=== PATIENT | male | born 1950 | race Caucasian/White ===

== ENCOUNTER 2017-04-23 17:41 | Inpatient (IN) | payer OTHER, MEDICARE ==
[~2017-04-23] VITALS: Ht 170.2 cm; Wt 72.7 kg
[~2017-04-23 17:41] MED LIST: AMLO2.5T2 PO; ASCO500C15 PO; ATEN25TA PO; KEN0.1O TP; PNV1TABL66 PO; QUET50TA22 PO; SIMV20TA5 PO
[2017-04-23] MEDS ORDERED: normal saline 1000ML IV soln IVB ONE ×2 (18:00)
[2017-04-23 18:23] LABS: BASOPHILS # (AUTO) 0.2 X10'3 (0-0.2); BASOPHILS % (AUTO) 2.2 % (0-1); EOSINOPHILS # (AUTO) 0.1 X10'3 (0-0.9); EOSINOPHILS % (AUTO) 1.2 % (0-6); HEMOGLOBIN 14.5 g/dl (14.0-17.9); LYMPHOCYTES # (AUTO) 2.7 X10'3 (1.1-4.8); LYMPHOCYTES % (AUTO) 31.7 % (21-51); MEAN CORPUSCULAR HEMOGLOBIN 36.8 PG (27.0-31.0); MEAN CORPUSCULAR HGB CONC 34.6 % (33.0-36.5); MEAN CORPUSCULAR VOLUME 106.2 FL (78-98); MEAN PLATELET VOLUME 6.3 FL (7.4-10.4); MONOCYTES # (AUTO) 0.6 X10'3 (0-0.9); MONOCYTES % (AUTO) 6.8 % (2-12); NEUTROPHILS # (AUTO) 4.9 X10'3 (1.8-7.7); NEUTROPHILS % (AUTO) 58.1 % (42-75); PLATELET COUNT 270 X10'3 (140-440); RED BLOOD COUNT 3.95 X10'6 (4.70-6.10); RED CELL DISTRIBUTION WIDTH 13.3 % (11.5-14.5); WHITE BLOOD COUNT 8.4 X10'3 (4.5-11.0)
[2017-04-23 18:40] LABS: URINE AMPHETAMINE SCREEN NEGATIVE (Neg); URINE BARBITUATE SCREEN NEGATIVE (Neg); URINE BENZODIAZEPINES SCREEN NEGATIVE (Neg); URINE CANNABINOID SCREEN NEGATIVE (Neg); URINE COCAINE SCREEN NEGATIVE (Neg); URINE METHADONE SCREEN NEGATIVE (Neg); URINE OPIATE SCREEN NEGATIVE (Neg); URINE PHENCYCLIDINE SCREEN NEGATIVE (Neg)
[2017-04-23 18:44] LABS: ALBUMIN 3.9 G/DL (3.4-5.0); ANION GAP 11 (8-16); BILIRUBIN,TOTAL 0.5 MG/DL (0.1-1.0); BLOOD UREA NITROGEN 10 MG/DL (7-18); BUN/CREATININE RATIO 20.4 (5.4-32.0); CALCIUM 8.6 MG/DL (8.5-10.1); CHLORIDE 91 MMOL/L (99-107); CREATININE 0.49 MG/DL (0.60-1.10); GLUCOSE 86 MG/DL (70-104); SODIUM 128 MMOL/L (135-145); TOTAL CARBON DIOXIDE 26.2 MMOL/L (24-32); TOTAL PROTEIN 7.1 G/DL (6.4-8.2); eGFR > 90 ML/MIN
[2017-04-23 18:45] LABS: ALANINE AMINOTRANSFERASE 51 U/L (12-78); ALBUMIN/GLOBULIN RATIO 1.2 (1.1-1.5); ALKALINE PHOSPHATASE 77 IU/L (46-116); ASPARTATE AMINO TRANSFERASE 31 U/L (10-37); ETHANOL 0.077 GM/DL (0.0-0.010)
[2017-04-23 18:49] LABS: POTASSIUM 2.6 MMOL/L (3.5-5.1)
[2017-04-23] MEDS ORDERED: potassium Cl 40 mEq/NS 500ml IV ONE (18:55)
[2017-04-23] MEDS ORDERED: Potassium Cl 40 MEQ in NS 500 ML IV ONE (19:05)
[2017-04-23] MEDS ORDERED: ATEN-169 PO (20:49)
[2017-04-23] MEDS ORDERED: SIMV20TA5 PO (20:49)
[2017-04-23] MEDS ORDERED: magnesium hydroxide 30ml (MOM) UD suspension PO PRN (22:50)
[2017-04-23] MEDS ORDERED: potassium Cl 40MEQ/NS 500ml 500 ML IV PRN ×2 (22:50)
[2017-04-23] MEDS ORDERED: mag hydrox/Alum hydrox/simeth 30ml oral suspension PO PRN (22:50)
[2017-04-23] MEDS ORDERED: ondansetron/PF 4mg/2ml inj IV PRN (22:50)
[2017-04-23] MEDS ORDERED: acetaminophen 325mg tablet PO PRN (22:50)
[2017-04-23] MEDS ORDERED: potassium Cl 20 mEq SR tablet PO PRN ×2 (22:50)
[2017-04-23] MEDS ORDERED: thiamine 100mg/ml 2ml inj. IV ONE (22:55)
[2017-04-24] VITALS: BP 109/62
[2017-04-24] MEDS ORDERED: potassium Cl 40MEQ/NS 500ml 500 ML IV ONE (00:46)
[2017-04-24] MEDS ORDERED: FLU VACC QS2017-18 36MOS UP/PF 60 MCG/0.5 ML SYRINGE IMVAC ONE (06:15)
[2017-04-24] MEDS: potassium cl 20mEq in 1/2 NS 1,000 ML IV SCH ×2 (06:32→07:49)
[2017-04-24 08:00] VITALS: BP 150/82
[2017-04-24] MEDS ORDERED: K and/or MAG REPLACEMENT MC SCH (08:00)
[2017-04-24] MEDS ORDERED: atenolol 50mg tablet PO SCH (08:00)
[2017-04-24 08:21] LABS: BASOPHILS % (AUTO) 0.5 % (0-1); EOSINOPHILS # (AUTO) 0.1 X10'3 (0-0.9); EOSINOPHILS % (AUTO) 1.1 % (0-6); HEMATOCRIT 42.5 % (42.0-52.0); HEMOGLOBIN 15.1 g/dl (14.0-17.9); LYMPHOCYTES # (AUTO) 2.4 X10'3 (1.1-4.8); LYMPHOCYTES % (AUTO) 34.1 % (21-51); MEAN CORPUSCULAR HEMOGLOBIN 36.5 PG (27.0-31.0); MEAN CORPUSCULAR HGB CONC 35.6 % (33.0-36.5); MEAN CORPUSCULAR VOLUME 102.5 FL (78-98); MEAN PLATELET VOLUME 7.2 FL (7.4-10.4); MONOCYTES # (AUTO) 0.8 X10'3 (0-0.9); NEUTROPHILS # (AUTO) 3.7 X10'3 (1.8-7.7); NEUTROPHILS % (AUTO) 53.3 % (42-75); PLATELET COUNT 237 X10'3 (140-440); RED BLOOD COUNT 4.15 X10'6 (4.70-6.10); RED CELL DISTRIBUTION WIDTH 12.8 % (11.5-14.5)
[2017-04-24 08:28] LABS: ALANINE AMINOTRANSFERASE 42 U/L (12-78); ALBUMIN 3.7 G/DL (3.4-5.0); ALBUMIN/GLOBULIN RATIO 1.2 (1.1-1.5); ALKALINE PHOSPHATASE 71 IU/L (46-116); ANION GAP 9 (8-16); ASPARTATE AMINO TRANSFERASE 30 U/L (10-37); BILIRUBIN,TOTAL 0.6 MG/DL (0.1-1.0); BLOOD UREA NITROGEN 10 MG/DL (7-18); BUN/CREATININE RATIO 18.9 (5.4-32.0); CALCIUM 8.7 MG/DL (8.5-10.1); CHLORIDE 97 MMOL/L (99-107); CREATININE 0.53 MG/DL (0.60-1.10); GLUCOSE 100 MG/DL (70-104); SODIUM 131 MMOL/L (135-145); TOTAL CARBON DIOXIDE 24.9 MMOL/L (24-32); TOTAL PROTEIN 6.9 G/DL (6.4-8.2); eGFR > 90 ML/MIN
[2017-04-24 08:32] LABS: POTASSIUM 3.4 MMOL/L (3.5-5.1)
[2017-04-24 11:00] VITALS: BP 162/82
[2017-04-24] MEDS ORDERED: POTA20TA10 PO (12:24)
[2017-04-24] MEDS ORDERED: THI100T PO (12:24)
[2017-04-24] MEDS ORDERED: non-formulary drug (Simvastatin* (Zocor*) 2 TAB) PO SCH (21:00)
[2017-04-24] MEDS ORDERED: atorvastatin 20mg tablet PO SCH (21:00)
== END 2017-04-24 14:00 | disposition home or self-care (01) | DRG 897 ==
LOC: ER 17:43 → ED HOLD 22:49 → MED 3N 23:00
PROVIDERS: ADMIT Internal Medicine; ATTEND Internal Medicine
DX: F10.239 Alcohol dependence with withdrawal, unspecified (principal); I50.9 Heart failure, unspecified; E87.6 Hypokalemia; E86.0 Dehydration; Y90.3 Blood alcohol level of 60-79 mg/100 ml; E78.00 Pure hypercholesterolemia, unspecified; F43.20 Adjustment disorder, unspecified; F32.9 Major depressive disorder, single episode, unspecified; F41.9 Anxiety disorder, unspecified; F17.210 Nicotine dependence, cigarettes, uncomplicated; Z79.899 Other long term (current) drug therapy; Z23 Encounter for immunization; Z91.048 Other nonmedicinal substance allergy status
CPT/HCPCS: 36415; 71045; 80053; 80305; 80320; 84443; 84484; 85025; 85610; 87070; 93005; 96361; 96365; 96366; 97116; 97161; 99285; J3411; J3480; J7030; Q2037

== ENCOUNTER 2017-06-24 11:23 | Emergency (ER) | payer MEDICARE, OTHER ==
[~2017-06-24] VITALS: Ht 170.2 cm; Wt 165.0 kg
[~2017-06-24 11:23] MED LIST changes: -AMLO2.5T2 PO; -ASCO500C15 PO; +ATEN-169 PO; -ATEN25TA PO; -KEN0.1O TP; +POTA20TA10 PO; -QUET50TA22 PO
[2017-06-24 12:09] LABS: BASOPHILS % (AUTO) 0.6 % (0-1); EOSINOPHILS # (AUTO) 0.1 X10'3 (0-0.9); EOSINOPHILS % (AUTO) 0.8 % (0-6); HEMATOCRIT 44.9 % (42.0-52.0); HEMOGLOBIN 15.8 g/dl (14.0-17.9); LYMPHOCYTES # (AUTO) 1.7 X10'3 (1.1-4.8); LYMPHOCYTES % (AUTO) 20.7 % (21-51); MEAN CORPUSCULAR HEMOGLOBIN 36.9 PG (27.0-31.0); MEAN CORPUSCULAR HGB CONC 35.3 % (33.0-36.5); MEAN CORPUSCULAR VOLUME 104.4 FL (78-98); MEAN PLATELET VOLUME 6.9 FL (7.4-10.4); MONOCYTES # (AUTO) 0.7 X10'3 (0-0.9); MONOCYTES % (AUTO) 8.5 % (2-12); NEUTROPHILS # (AUTO) 5.6 X10'3 (1.8-7.7); NEUTROPHILS % (AUTO) 69.4 % (42-75); PLATELET COUNT 221 X10'3 (140-440); RED CELL DISTRIBUTION WIDTH 12.6 % (11.5-14.5); WHITE BLOOD COUNT 8.1 X10'3 (4.5-11.0)
[2017-06-24 12:13] LABS: CLARITY,URINE CLEAR (Clear); COLOR,URINE STRAW (Yellow); GLUCOSE, URINE NEGATIVE (Neg); KETONES,URINE NEGATIVE (Neg); LEUKOCYTE ESTERASE ,URINE NEGATIVE (Neg); NITRITES, URINE NEGATIVE (Neg); OCCULT BLOOD,URINE TRACE-INTACT (Neg); PH,URINE 6.5 (4.8-8.0); PROTEIN,URINE NEGATIVE (Neg); UA COLLECTION TYPE CLN CATCH MIDSTREAM; UROBILINOGEN,URINE 0.2 E.U/dL (0.2-1.0)
[2017-06-24] MEDS ORDERED: normal saline 1000ML IV soln IVB ONE (12:15)
[2017-06-24 12:21] LABS: BACTERIA,URINE NONE SEEN /HPF (Neg); MUCUS STRANDS NONE SEEN /LPF (Neg); RBC,URINE 0-2 /HPF (0-2); SQUAMOUS EPITHELIAL CELL,UR NONE SEEN /LPF (FEW); WBC,URINE NONE SEEN /HPF (0-4)
[2017-06-24 12:24] LABS: ALANINE AMINOTRANSFERASE 39 U/L (12-78); ALBUMIN/GLOBULIN RATIO 1.1 (1.1-1.5); ALKALINE PHOSPHATASE 98 IU/L (46-116); ANION GAP 11 (8-16); ASPARTATE AMINO TRANSFERASE 30 U/L (10-37); BLOOD UREA NITROGEN 7 MG/DL (7-18); BUN/CREATININE RATIO 11.3 (5.4-32.0); CHLORIDE 93 MMOL/L (99-107); CREATININE 0.62 MG/DL (0.60-1.10); GLUCOSE 104 MG/DL (70-104); LIPASE 154 U/L (73-393); MAGNESIUM 1.7 MG/DL (1.5-2.4); SODIUM 131 MMOL/L (135-145); TOTAL PROTEIN 7.8 G/DL (6.4-8.2); eGFR > 90 ML/MIN
[2017-06-24 12:28] LABS: POTASSIUM 2.9 MMOL/L (3.5-5.1)
[2017-06-24 12:35] LABS: ETHANOL < 0.010 GM/DL (0.0-0.010)
[2017-06-24] MEDS ORDERED: potassium Cl 20 mEq SR tablet PO STA ×2 (12:35→13:42)
[2017-06-24] MEDS ORDERED: magnesium oxide 400mg tablet PO ONE (12:35)
[2017-06-24] MEDS ORDERED: thiamine 100mg tablet PO ONE (12:35)
[2017-06-24 14:38] VITALS: BP 138/70
== END 2017-06-24 14:38 | disposition home or self-care (01) ==
LOC: ER 11:25
DX: R53.1 Weakness (principal); F10.10 Alcohol abuse, uncomplicated; E87.6 Hypokalemia; E78.00 Pure hypercholesterolemia, unspecified; Z98.890 Other specified postprocedural states; Z88.8 Allergy status to other drugs, medicaments and biological substances; Z91.013 Allergy to seafood; Z79.899 Other long term (current) drug therapy
CPT/HCPCS: 36415; 80053; 80320; 81001; 82140; 83690; 83735; 84439; 84443; 84484; 85025; 93005; 96360; 99285; J7030

== ENCOUNTER 2017-12-23 14:19 | Inpatient (IN) | payer MEDICARE, OTHER ==
[~2017-12-23] VITALS: Ht 170.2 cm; Wt 70.5 kg
[~2017-12-23 14:19] MED LIST changes: +PNV1TABL55 PO; -PNV1TABL66 PO
[2017-12-23] MEDS ORDERED: normal saline 1000ML IV soln IVB ONE (16:00)
[2017-12-23 17:03] LABS: CLARITY,URINE CLEAR (Clear); COLOR,URINE YELLOW (Yellow); GLUCOSE, URINE 100 mg/dl (Neg); KETONES,URINE NEGATIVE (Neg); LEUKOCYTE ESTERASE ,URINE NEGATIVE (Neg); NITRITES, URINE NEGATIVE (Neg); OCCULT BLOOD,URINE LARGE (Neg); PROTEIN,URINE 30 mg/dl (Neg); UROBILINOGEN,URINE 0.2 E.U/dL (0.2-1.0)
[2017-12-23 17:16] LABS: UA COLLECTION TYPE URINAL
[2017-12-23 17:17] LABS: ALANINE AMINOTRANSFERASE 214 U/L (12-78); ALBUMIN 3.7 G/DL (3.4-5.0); ALKALINE PHOSPHATASE 94 IU/L (46-116); ANION GAP 14 (8-16); ASPARTATE AMINO TRANSFERASE 386 U/L (10-37); BLOOD UREA NITROGEN 62 MG/DL (7-18); CALCIUM 8.5 MG/DL (8.5-10.1); CHLORIDE 78 MMOL/L (99-107); CREATININE 1.63 MG/DL (0.60-1.10); GLUCOSE 109 MG/DL (70-104); LIPASE 363 U/L (73-393); TOTAL CARBON DIOXIDE 25.7 MMOL/L (24-32); TOTAL PROTEIN 7.5 G/DL (6.4-8.2); eGFR 42 ML/MIN
[2017-12-23 17:31] LABS: POTASSIUM 2.5 MMOL/L (3.5-5.1); SODIUM 118 MMOL/L (135-145)
[2017-12-23 17:32] LABS: BASOPHILS % (AUTO) 0.3 % (0-1); EOSINOPHILS % (AUTO) 0.2 % (0-6); HEMATOCRIT 25.7 % (42.0-52.0); LYMPHOCYTES # (AUTO) 0.7 X10'3 (1.1-4.8); LYMPHOCYTES % (AUTO) 10.5 % (21-51); MEAN CORPUSCULAR HEMOGLOBIN 37.4 PG (27.0-31.0); MEAN CORPUSCULAR HGB CONC 34.9 % (33.0-36.5); MEAN PLATELET VOLUME 7.1 FL (7.4-10.4); MONOCYTES # (AUTO) 0.7 X10'3 (0-0.9); MONOCYTES % (AUTO) 10.5 % (2-12); NEUTROPHILS # (AUTO) 5.1 X10'3 (1.8-7.7); NEUTROPHILS % (AUTO) 78.5 % (42-75); PLATELET COUNT 122 X10'3 (140-440); RED CELL DISTRIBUTION WIDTH 12.2 % (11.5-14.5); WHITE BLOOD COUNT 6.4 X10'3 (4.5-11.0)
[2017-12-23 17:33] LABS: WBC,URINE 0-4 /HPF (0-4)
[2017-12-23 17:34] LABS: AMORPHOUS URATES 1+; BACTERIA,URINE NONE SEEN /HPF (Neg); HYALINE CASTS 0-3 /LPF (NEGATIVE); RBC,URINE 0-2 /HPF (0-2); SQUAMOUS EPITHELIAL CELL,UR FEW /LPF (FEW); TRANSITIONAL EPI CELLS,URINE FEW /HPF
[2017-12-23 17:35] LABS: FINE GRANULAR CAST 0-3 /LPF (NEGATIVE)
[2017-12-23] MEDS ORDERED: potassium Cl 20 mEq SR tablet PO ONE (17:35)
[2017-12-23] MEDS: potassium 10mEq/100ml NS w/LIDOcaine (10mg/bag) IV SCH ×2 (17:48→19:08)
[2017-12-23] MEDS: magnesium 1gm/100ml D5W IVPB 100 ML IV SCH ×2 (17:59→19:08)
[2017-12-23 18:28] LABS: MAGNESIUM 2.4 MG/DL (1.5-2.4)
[2017-12-23 18:30] LABS: CREATINE KINASE 5242 U/L (39-308)
[2017-12-23] MEDS ORDERED: LORazepam 2 mg/ml vial IV PRN (19:30)
[2017-12-23] MEDS ORDERED: mag hydrox/Alum hydrox/simeth 30ml oral suspension PO PRN (19:30)
[2017-12-23] MEDS ORDERED: acetaminophen 325mg tablet PO PRN (19:30)
[2017-12-23] MEDS ORDERED: magnesium hydroxide 30ml (MOM) UD suspension PO PRN (19:30)
[2017-12-23] MEDS ORDERED: magnesium 1gm/100ml D5W IVPB 100 ML IV PRN (19:30)
[2017-12-23] MEDS ORDERED: morphine 2 MG/ML inj. syringe IV PRN ×2 (19:30)
[2017-12-23] MEDS ORDERED: magnesium Cl slow-release 64mg tablet PO PRN (19:30)
[2017-12-23] MEDS ORDERED: ondansetron/PF 4mg/2ml inj IV PRN (19:30)
[2017-12-23] MEDS ORDERED: dextrose 50%-water 50ml dispensing syringe IV PRN (19:30)
[2017-12-23] MEDS ORDERED: magnesium 4gm in 100ml NS 100 ML IV PRN (19:30)
[2017-12-23] MEDS ORDERED: potassium Cl 40MEQ/NS 500ml 500 ML IV PRN ×2 (19:30)
[2017-12-23] MEDS ORDERED: thiamine 100mg/ml 2ml inj. IV ONE (19:30)
[2017-12-23] MEDS ORDERED: IBUP-1986 PO (19:49)
[2017-12-23] MEDS ORDERED: ATEN-169 PO (19:49)
[2017-12-23] MEDS ORDERED: KEN0.1O TP (19:49)
[2017-12-23] MEDS ORDERED: AMLO10TA13 PO (19:49)
[2017-12-23] MEDS ORDERED: VITA1TAB20 PO (19:49)
[2017-12-23] MEDS ORDERED: [UNRECOGNIZED DRUG - CODE] TP (19:52)
[2017-12-23] MEDS ORDERED: PNV1TABL7 PO (19:52)
[2017-12-23] MEDS: potassium Cl 20mEq in NS 1,000 ML IV SCH (20:30)
[2017-12-24 00:18] LABS: MAGNESIUM 2.7 MG/DL (1.5-2.4)
[2017-12-24 00:19] LABS: POTASSIUM 2.8 MMOL/L (3.5-5.1)
[2017-12-24] MEDS: potassium Cl 20 mEq SR tablet PO PRN ×3 (00:53→09:56)
[2017-12-24 02:00] VITALS: BP 122/70
[2017-12-24] MEDS: potassium Cl 20mEq in NS 1,000 ML IV SCH ×2 (05:55→15:43)
[2017-12-24 06:43] LABS: BASOPHILS % (AUTO) 0.6 % (0-1); EOSINOPHILS % (AUTO) 0.2 % (0-6); HEMATOCRIT 36.9 % (42.0-52.0); HEMOGLOBIN 12.9 g/dl (14.0-17.9); LYMPHOCYTES # (AUTO) 1.2 X10'3 (1.1-4.8); LYMPHOCYTES % (AUTO) 16.1 % (21-51); MEAN CORPUSCULAR HEMOGLOBIN 37.6 PG (27.0-31.0); MEAN CORPUSCULAR VOLUME 107.3 FL (78-98); MEAN PLATELET VOLUME 7.7 FL (7.4-10.4); MONOCYTES % (AUTO) 13.5 % (2-12); NEUTROPHILS # (AUTO) 5.2 X10'3 (1.8-7.7); NEUTROPHILS % (AUTO) 69.6 % (42-75); PLATELET COUNT 200 X10'3 (140-440); RED BLOOD COUNT 3.44 X10'6 (4.70-6.10); RED CELL DISTRIBUTION WIDTH 12.4 % (11.5-14.5); WHITE BLOOD COUNT 7.4 X10'3 (4.5-11.0)
[2017-12-24 07:06] LABS: ALANINE AMINOTRANSFERASE 165 U/L (12-78); ALBUMIN 3.1 G/DL (3.4-5.0); ALBUMIN/GLOBULIN RATIO 0.9 (1.1-1.5); ALKALINE PHOSPHATASE 83 IU/L (46-116); ANION GAP 11 (8-16); ASPARTATE AMINO TRANSFERASE 252 U/L (10-37); BILIRUBIN,TOTAL 1.2 MG/DL (0.1-1.0); BLOOD UREA NITROGEN 44 MG/DL (7-18); CALCIUM 8.3 MG/DL (8.5-10.1); CHLORIDE 91 MMOL/L (99-107); GLUCOSE 113 MG/DL (70-104); MAGNESIUM 2.6 MG/DL (1.5-2.4); POTASSIUM 3.1 MMOL/L (3.5-5.1); SODIUM 127 MMOL/L (135-145); TOTAL PROTEIN 6.5 G/DL (6.4-8.2); eGFR 66 ML/MIN
[2017-12-24 07:12] VITALS: BP 126/77
[2017-12-24] MEDS: K and/or MAG REPLACEMENT MC SCH (08:00)
[2017-12-24] MEDS: pantoprazole 40 MG vial IV SCH (08:34)
[2017-12-24] MEDS: atenolol 50mg tablet PO SCH (08:35)
[2017-12-24 09:20] LABS: CREATINE KINASE 2555 U/L (39-308)
[2017-12-24 11:00] VITALS: BP 112/57
[2017-12-24 12:12] LABS: PHOSPHORUS 1.8 MG/DL (2.3-4.5)
[2017-12-24 12:13] LABS: POTASSIUM 4.1 MMOL/L (3.5-5.1)
[2017-12-24] MEDS ORDERED: sodium phosphate inj. 30 MMOL in dextrose 5%-water 250 ML IV ONE (13:30)
[2017-12-24 15:00] VITALS: BP 105/60
[2017-12-24] MEDS: Neutra Phos packet PO SCH ×2 (15:39→20:08)
[2017-12-24 19:00] VITALS: BP 99/60
[2017-12-24] MEDS: atorvastatin 10mg tablet PO SCH (20:08)
[2017-12-24] MEDS ORDERED: Neutra Phos packet PO SCH (21:00)
[2017-12-24 23:00] VITALS: BP 136/70
[2017-12-25] MEDS: potassium Cl 20mEq in NS 1,000 ML IV SCH ×3 (01:16→21:30)
[2017-12-25 03:00] VITALS: BP 109/79
[2017-12-25 06:00] VITALS: BP 145/73
[2017-12-25 06:01] LABS: BASOPHILS % (AUTO) 0.3 % (0-1); EOSINOPHILS # (AUTO) 0.2 X10'3 (0-0.9); EOSINOPHILS % (AUTO) 2.2 % (0-6); HEMATOCRIT 33.6 % (42.0-52.0); HEMOGLOBIN 11.7 g/dl (14.0-17.9); LYMPHOCYTES % (AUTO) 25.1 % (21-51); MEAN CORPUSCULAR HEMOGLOBIN 37.4 PG (27.0-31.0); MEAN CORPUSCULAR HGB CONC 34.9 % (33.0-36.5); MEAN CORPUSCULAR VOLUME 107.4 FL (78-98); MEAN PLATELET VOLUME 7.5 FL (7.4-10.4); MONOCYTES # (AUTO) 0.9 X10'3 (0-0.9); MONOCYTES % (AUTO) 11.1 % (2-12); NEUTROPHILS # (AUTO) 4.8 X10'3 (1.8-7.7); NEUTROPHILS % (AUTO) 61.3 % (42-75); PLATELET COUNT 196 X10'3 (140-440); RED BLOOD COUNT 3.13 X10'6 (4.70-6.10); WHITE BLOOD COUNT 7.8 X10'3 (4.5-11.0)
[2017-12-25 06:25] LABS: ALANINE AMINOTRANSFERASE 126 U/L (12-78); ALBUMIN 2.7 G/DL (3.4-5.0); ALBUMIN/GLOBULIN RATIO 0.9 (1.1-1.5); ALKALINE PHOSPHATASE 68 IU/L (46-116); ANION GAP 9 (8-16); ASPARTATE AMINO TRANSFERASE 160 U/L (10-37); BILIRUBIN,TOTAL 0.8 MG/DL (0.1-1.0); BLOOD UREA NITROGEN 25 MG/DL (7-18); BUN/CREATININE RATIO 35.7 (5.4-32.0); CHLORIDE 96 MMOL/L (99-107); GLUCOSE 109 MG/DL (70-104); MAGNESIUM 1.6 MG/DL (1.5-2.4); PHOSPHORUS 2.3 MG/DL (2.3-4.5); POTASSIUM 3.3 MMOL/L (3.5-5.1); SODIUM 129 MMOL/L (135-145); TOTAL CARBON DIOXIDE 24.1 MMOL/L (24-32); TOTAL PROTEIN 5.8 G/DL (6.4-8.2); eGFR > 90 ML/MIN
[2017-12-25 06:27] LABS: CREATINE KINASE 1184 U/L (39-308)
[2017-12-25] MEDS: atenolol 50mg tablet PO SCH (07:58)
[2017-12-25] MEDS: potassium Cl 20 mEq SR tablet PO PRN ×2 (07:58→12:09)
[2017-12-25] MEDS: Neutra Phos packet PO SCH ×3 (07:59→20:28)
[2017-12-25] MEDS: pantoprazole 40 MG vial IV SCH (07:59)
[2017-12-25] MEDS: enoxaparin 40mg/0.4ml syringe SUBCUT SCH (08:00)
[2017-12-25] MEDS: K and/or MAG REPLACEMENT MC SCH (08:00)
[2017-12-25 11:00] VITALS: BP 131/71
[2017-12-25 15:00] VITALS: BP 136/76
[2017-12-25 19:00] VITALS: BP 161/81
[2017-12-25] MEDS ORDERED: LORazepam 2 mg/ml vial IV PRN (19:30)
[2017-12-25] MEDS ORDERED: LORazepam 1 MG tablet PO PRN (19:30)
[2017-12-25] MEDS: atorvastatin 10mg tablet PO SCH (20:28)
[2017-12-25 23:00] VITALS: BP 125/70
[2017-12-26 03:00] VITALS: BP 132/66
[2017-12-26 06:00] VITALS: BP 153/78
[2017-12-26 06:42] LABS: BASOPHILS # (AUTO) 0.1 X10'3 (0-0.2); BASOPHILS % (AUTO) 0.7 % (0-1); EOSINOPHILS # (AUTO) 0.1 X10'3 (0-0.9); EOSINOPHILS % (AUTO) 1.7 % (0-6); HEMOGLOBIN 11.5 g/dl (14.0-17.9); LYMPHOCYTES # (AUTO) 2.2 X10'3 (1.1-4.8); LYMPHOCYTES % (AUTO) 26.9 % (21-51); MEAN CORPUSCULAR HGB CONC 34.9 % (33.0-36.5); MEAN CORPUSCULAR VOLUME 106.1 FL (78-98); MEAN PLATELET VOLUME 7.8 FL (7.4-10.4); MONOCYTES # (AUTO) 0.8 X10'3 (0-0.9); MONOCYTES % (AUTO) 9.6 % (2-12); NEUTROPHILS # (AUTO) 5.1 X10'3 (1.8-7.7); NEUTROPHILS % (AUTO) 61.1 % (42-75); PLATELET COUNT 214 X10'3 (140-440); RED BLOOD COUNT 3.11 X10'6 (4.70-6.10); RED CELL DISTRIBUTION WIDTH 12.2 % (11.5-14.5); WHITE BLOOD COUNT 8.3 X10'3 (4.5-11.0)
[2017-12-26 07:01] LABS: ALANINE AMINOTRANSFERASE 116 U/L (12-78); ALBUMIN 2.8 G/DL (3.4-5.0); ALBUMIN/GLOBULIN RATIO 0.9 (1.1-1.5); ALKALINE PHOSPHATASE 68 IU/L (46-116); ANION GAP 11 (8-16); ASPARTATE AMINO TRANSFERASE 121 U/L (10-37); BILIRUBIN,TOTAL 0.7 MG/DL (0.1-1.0); BLOOD UREA NITROGEN 15 MG/DL (7-18); BUN/CREATININE RATIO 21.4 (5.4-32.0); CALCIUM 7.9 MG/DL (8.5-10.1); CHLORIDE 93 MMOL/L (99-107); GLUCOSE 109 MG/DL (70-104); MAGNESIUM 1.1 MG/DL (1.5-2.4); POTASSIUM 3.2 MMOL/L (3.5-5.1); SODIUM 127 MMOL/L (135-145); TOTAL CARBON DIOXIDE 23.5 MMOL/L (24-32); eGFR > 90 ML/MIN
[2017-12-26] MEDS: K and/or MAG REPLACEMENT MC SCH (08:00)
[2017-12-26] MEDS: pantoprazole 40mg Tablet.DR PO SCH (08:08)
[2017-12-26] MEDS: atenolol 25mg tablet PO SCH (08:09)
[2017-12-26] MEDS: Neutra Phos packet PO SCH ×3 (08:09→22:46)
[2017-12-26] MEDS: potassium Cl 20 mEq SR tablet PO PRN ×3 (08:09→17:25)
[2017-12-26] MEDS: enoxaparin 40mg/0.4ml syringe SUBCUT SCH (08:11)
[2017-12-26 11:00] VITALS: BP 103/56
[2017-12-26] MEDS: potassium Cl 20mEq in NS 1,000 ML IV SCH ×3 (12:30→20:18)
[2017-12-26 12:47] LABS: CHLORIDE 92 MMOL/L (99-107); POTASSIUM 3.7 MMOL/L (3.5-5.1); TOTAL CARBON DIOXIDE 23.1 MMOL/L (24-32)
[2017-12-26 12:53] LABS: ANION GAP 12 (8-16); BLOOD UREA NITROGEN 14 MG/DL (7-18); BUN/CREATININE RATIO 16.9 (5.4-32.0); CALCIUM 7.8 MG/DL (8.5-10.1); CREATININE 0.83 MG/DL (0.60-1.10); GLUCOSE 138 MG/DL (70-104); SODIUM 127 MMOL/L (135-145); eGFR > 90 ML/MIN
[2017-12-26 15:00] VITALS: BP 122/94
[2017-12-26 18:00] VITALS: BP 135/75
[2017-12-26 22:00] VITALS: BP 140/67
[2017-12-27 02:00] VITALS: BP 150/77
[2017-12-27] MEDS: potassium Cl 20mEq in NS 1,000 ML IV SCH ×2 (02:57→10:26)
[2017-12-27 06:00] VITALS: BP 160/77
[2017-12-27 06:06] LABS: BASOPHILS # (AUTO) 0.1 X10'3 (0-0.2); BASOPHILS % (AUTO) 0.7 % (0-1); EOSINOPHILS # (AUTO) 0.2 X10'3 (0-0.9); EOSINOPHILS % (AUTO) 2.4 % (0-6); HEMATOCRIT 33.5 % (42.0-52.0); HEMOGLOBIN 11.7 g/dl (14.0-17.9); LYMPHOCYTES # (AUTO) 2.2 X10'3 (1.1-4.8); LYMPHOCYTES % (AUTO) 30.5 % (21-51); MEAN CORPUSCULAR HEMOGLOBIN 37.2 PG (27.0-31.0); MEAN CORPUSCULAR HGB CONC 34.8 % (33.0-36.5); MEAN CORPUSCULAR VOLUME 107.1 FL (78-98); MEAN PLATELET VOLUME 7.2 FL (7.4-10.4); MONOCYTES # (AUTO) 0.8 X10'3 (0-0.9); MONOCYTES % (AUTO) 11.4 % (2-12); NEUTROPHILS # (AUTO) 3.9 X10'3 (1.8-7.7); PLATELET COUNT 253 X10'3 (140-440); RED BLOOD COUNT 3.13 X10'6 (4.70-6.10); RED CELL DISTRIBUTION WIDTH 12.2 % (11.5-14.5); WHITE BLOOD COUNT 7.1 X10'3 (4.5-11.0)
[2017-12-27 06:39] LABS: ALANINE AMINOTRANSFERASE 103 U/L (12-78); ALBUMIN 2.8 G/DL (3.4-5.0); ALBUMIN/GLOBULIN RATIO 0.9 (1.1-1.5); ALKALINE PHOSPHATASE 73 IU/L (46-116); ANION GAP 10 (8-16); ASPARTATE AMINO TRANSFERASE 80 U/L (10-37); BILIRUBIN,TOTAL 0.6 MG/DL (0.1-1.0); BLOOD UREA NITROGEN 14 MG/DL (7-18); BUN/CREATININE RATIO 21.2 (5.4-32.0); CALCIUM 7.8 MG/DL (8.5-10.1); CHLORIDE 97 MMOL/L (99-107); CREATINE KINASE 781 U/L (39-308); CREATININE 0.66 MG/DL (0.60-1.10); GLUCOSE 101 MG/DL (70-104); MAGNESIUM 1.4 MG/DL (1.5-2.4); POTASSIUM 3.3 MMOL/L (3.5-5.1); SODIUM 130 MMOL/L (135-145); TOTAL CARBON DIOXIDE 22.8 MMOL/L (24-32); TOTAL PROTEIN 5.8 G/DL (6.4-8.2); eGFR > 90 ML/MIN
[2017-12-27] MEDS: K and/or MAG REPLACEMENT MC SCH (08:00)
[2017-12-27] MEDS: pantoprazole 40mg Tablet.DR PO SCH (08:09)
[2017-12-27] MEDS: atenolol 25mg tablet PO SCH (08:09)
[2017-12-27] MEDS: Neutra Phos packet PO SCH (08:10)
[2017-12-27] MEDS: enoxaparin 40mg/0.4ml syringe SUBCUT SCH (08:10)
[2017-12-27] MEDS ORDERED: POTA20TA19 PO (10:05)
[2017-12-27] MEDS ORDERED: FOLI1TAB16 PO (10:05)
[2017-12-27] MEDS ORDERED: THI100T PO (10:05)
[2017-12-27 12:46] VITALS: BP 140/75
[2017-12-27] MEDS ORDERED: LORazepam 1 MG tablet PO PRN (19:30)
[2017-12-27] MEDS ORDERED: LORazepam 2 mg/ml vial IV PRN (19:30)
== END 2017-12-27 14:00 | disposition home health service (06) | DRG 683 ==
LOC: ER 14:19 → ED HOLD 19:30 → EDBEDREQ 23:57 → ED HOLD 12-24 00:13 → PCU 3S 12-24 02:29
PROVIDERS: ADMIT Internal Medicine; ATTEND Internal Medicine
DX: N17.9 Acute kidney failure, unspecified (principal); E87.1 Hypo-osmolality and hyponatremia; M62.82 Rhabdomyolysis; E87.6 Hypokalemia; E86.0 Dehydration; D64.9 Anemia, unspecified; E78.00 Pure hypercholesterolemia, unspecified; W18.39XA Other fall on same level, initial encounter; F10.10 Alcohol abuse, uncomplicated; G62.9 Polyneuropathy, unspecified; I50.9 Heart failure, unspecified; Z96.649 Presence of unspecified artificial hip joint; F41.9 Anxiety disorder, unspecified; Z91.018 Allergy to other foods; Z91.048 Other nonmedicinal substance allergy status; Z79.899 Other long term (current) drug therapy; Z71.41 Alcohol abuse counseling and surveillance of alcoholic; Y93.89 Activity, other specified; Y92.89 Other specified places as the place of occurrence of the external cause; Y99.8 Other external cause status
CPT/HCPCS: 36415; 70450; 71045; 72100; 80048; 80053; 81001; 82550; 82607; 83605; 83690; 83735; 84100; 84132; 85025; 87070; 96361; 96365; 96366; 96368; 97110; 97116; 97162; 97530; 99285; C9113; G0378; J1650; J3411; J3475; J3480

== ENCOUNTER 2021-01-11 08:49 | Day surgery (SDC) | payer OTHER ==
[~2021-01-11] VITALS: Ht 170.2 cm; Wt 69.9 kg
[2021-01-11] VITALS (7 sets, daily range): BP systolic 110–148; BP diastolic 67–87
[~2021-01-11 08:49] MED LIST changes: +FOLI1TAB16 PO; +LIDOcaine 1% 30ml preserv. free vial IJ STA; -PNV1TABL55 PO; +PNV1TABL7 PO; -POTA20TA10 PO; -SIMV20TA5 PO; +VITA1TAB20 PO
[2021-01-11] MEDS ORDERED: albumin 25% 100mL bottle x 1 IV PRN (09:20)
[2021-01-11] MEDS ORDERED: ASPI-1265 PO (09:29)
[2021-01-11] MEDS ORDERED: LISI40TA13 PO (09:30)
[2021-01-11] MEDS ORDERED: AMLO5TAB PO (09:32)
[2021-01-11] MEDS ORDERED: AMLO10TA13 PO (09:33)
[2021-01-11] MEDS ORDERED: PANT-47 PO (09:48)
[2021-01-11] MEDS ORDERED: ROSU40TA PO (09:49)
[2021-01-11] MEDS ORDERED: ROSU20TA2 PO (09:50)
[2021-01-11] MEDS ORDERED: METO-411 PO (09:53)
[2021-01-11] MEDS ORDERED: AMLO-140 PO (09:55)
[2021-01-11 11:38] LABS: BFSOURCE RIGHT PLEURAL FLD; PLEURAL FLUID PH 6.925 (7.63-7.65)
[2021-01-11 11:52] LABS: TOTAL PROTEIN,BODY FLUID 3.8 G/DL
[2021-01-11 11:54] LABS: LDH,BODY FLUID 225 U/L
[2021-01-11 12:32] LABS: BFAPPEAR CLOUDY; BFCOLOR AMBER
[2021-01-11 12:33] LABS: BF RBC COUNT 33500 /CU MM; BF WBC COUNT 10 /CU MM (0-1000); BFVOLUME 45 ML
[2021-01-11 12:39] LABS: EOSINOPHILS,BODY FLUID 2 %; LYMPHOCYTES,BODY FLUID 43 %; MONOCYTES,BODY FLUID 5 %; NEUTROPHILS,BODY FLUID 50 %
== END 2021-01-11 09:55 | disposition home or self-care (01) ==
LOC: SSTAY O 08:49
PROVIDERS: ATTEND Radiology Vascular & Interventional Radiology
DX: J90 Pleural effusion, not elsewhere classified (principal); E87.6 Hypokalemia; K21.9 Gastro-esophageal reflux disease without esophagitis; I10 Essential (primary) hypertension; E78.5 Hyperlipidemia, unspecified; I25.2 Old myocardial infarction; E87.1 Hypo-osmolality and hyponatremia; F17.210 Nicotine dependence, cigarettes, uncomplicated; Z72.89 Other problems related to lifestyle; Z96.641 Presence of right artificial hip joint; Z95.1 Presence of aortocoronary bypass graft; Z91.09 Other allergy status, other than to drugs and biological substances; Z91.013 Allergy to seafood; Z79.82 Long term (current) use of aspirin; Z79.899 Other long term (current) drug therapy; Z20.822 Contact with and (suspected) exposure to COVID-19
CPT/HCPCS: 32555; 83615; 83986; 84157; 87635; 89051; C9803; J2001